=== PATIENT | male | born 2000 | race Two or more races ===

== ENCOUNTER 2021-05-24 16:09 | Emergency (ER) | payer OTHER ==
[~2021-05-24] VITALS: Ht 180.3 cm; Wt 70.0 kg
[2021-05-24] MEDS ORDERED: IBUPROFEN 600 MG TABLET PO ONE (17:30)
[2021-05-24] MEDS ORDERED: BACITRACIN 0.9 GM PACKET OINTMENT TP ONE (17:30)
[2021-05-24] MEDS ORDERED: LIDOCAINE 1% 10 ML VIAL SQ ONE (17:30)
[2021-05-24] MEDS ORDERED: IBUP-1554 PO (18:13)
[2021-05-24 18:37] VITALS: BP 125/71
== END 2021-05-24 18:39 | disposition home or self-care (01) ==
LOC: EMS 16:09
DX: S01.81XA Laceration without foreign body of other part of head, initial encounter (principal); S40.011A Contusion of right shoulder, initial encounter; W01.198A Fall on same level from slipping, tripping and stumbling with subsequent striking against other object, initial encounter; Y93.89 Activity, other specified; Y92.89 Other specified places as the place of occurrence of the external cause; Y99.0 Civilian activity done for income or pay
CPT/HCPCS: 12011; 73030; 99283; J3490